=== PATIENT | female | born 1980 | race American Indian/Alaskan Native ===

== ENCOUNTER 2016-12-03 08:09 | Emergency (ER) | payer OTHER, MEDICAID ==
[2016-12-03 08:16] VITALS: BP 122/72
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
== END 2016-12-03 11:58 | disposition home or self-care (01) ==
LOC: ED 08:09
DX: S16.1XXA Strain of muscle, fascia and tendon at neck level, initial encounter (principal); M25.571 Pain in right ankle and joints of right foot; M54.6 Pain in thoracic spine; V49.49XA Driver injured in collision with other motor vehicles in traffic accident, initial encounter; X58.XXXA Exposure to other specified factors, initial encounter; Y93.9 Activity, unspecified; Y92.9 Unspecified place or not applicable; Y99.9 Unspecified external cause status
CPT/HCPCS: 72040; 72070; 99283

== ENCOUNTER 2017-02-15 08:29 | Emergency (ER) | payer MEDICAID, OTHER ==
[2017-02-15 08:40] VITALS: BP 126/76
--- NOTE | 2017-02-15 09:12 | XRay Report ---
RIGHT FINGERS, 3 VIEWS History: Right middle finger pain. Findings: There is a subtle cortical defect at the base of the middle phalanx of the third digit seen on the lateral view only. This could represent a chip fracture or avulsion injury. Please correlate with the image and patient. The remaining right fingers are intact. No joint pathology. Normal soft tissues. Impression: Questionable nondisplaced fracture at the base of the middle phalanx. See above.
[2017-02-15] MEDS ORDERED: NORCO 5/325 PO ONE (12:28)
[2017-02-15] MEDS ORDERED: MOTRIN PO ONE (12:28)
--- NOTE | 2017-02-15 12:44 | Emergency Department Report ---
Entered by TONNY PEREZ, acting as scribe for ABBI HAYNES PA. ED Upper Extremity Inj HPI - General Chief Complaint: Extremity Injury, Upper Stated Complaint: SWOLLEN FINGER Time Seen by Provider: 02/15/17 12:00 Source: patient, family Mode of arrival: Ambulatory Limitations: No Limitations - History of Present Illness Initial Comments: 36 y/o female with no significant PMHx presents to the ED c/o proximal right middle phalanx pain that began 1 week ago. Rates pain an 8/10 in severity, which she describes as aching in quality. Aggravated with movement and alleviated with immobilization. Patient states heavy glass fell on her right middle finger 1 week ago. Reports associated right middle finger swelling, numbness, and tingling, but she denies fever and chills. Took 1/2 tablet of Motrin 800mg yesterday with some relief. Allergic to codeine. Complaint: Injury to:: right, finger (middle) Onset/Timin -: week(s) Other Extremity Injury: Fingers: Right (middle, pain and swelling) Other Injuries: none Handedness: right Place: home Severity scale (0 -10): 8 Improves With: immobilization, medication Worsens With: movement of extremity Context: direct blow, other (heavy glass fell on right middle finger) Associated Symptoms: other (right middle finger swelling and tingling). denies : weakness, numbness, neck pain, suspects foreign body, nausea/vomiting, heard/ felt popping sensat Treatments Prior to Arrival: other (Motrin 800mg yesterday) - Related Data Previous Rx's Medication Instructions Recorded Last Taken Type methOCARBAMOL [Robaxin TAB] 500 mg PO Q6H PRN #15 tablet 12/03/16 Unknown Rx traMADol [Ultram] 50 mg PO Q6HR PRN #12 tablet 12/03/16 Unknown Rx HYDROcodone/APAP 5-325 [Dunlap 1 each PO Q6HR PRN #12 tablet 02/15/17 Unknown Rx 5/325] Ibuprofen [Motrin 600 MG tab] 600 mg PO Q8H PRN #15 tablet 02/15/17 Unknown Rx Allergies Allergy/AdvReac Type Severity Reaction Status Date / Time codeine AdvReac Vomiting Verified 02/15/17 08:40 ED Review of Systems Comment: All other systems reviewed and negative Constitutional: denies: chills, fever Eyes: denies: eye pain, eye discharge, vision change ENT: denies: ear pain, throat pain Respiratory: denies: cough, orthopnea, shortness of breath, SOB with exertion, SOB at rest, stridor, wheezing Cardiovascular: denies: chest pain, palpitations, dyspnea on exertion, orthopnea , edema, syncope, paroxysmal nocturnal dyspnea Endocrine: no symptoms reported Gastrointestinal: denies: abdominal pain, nausea, vomiting, diarrhea Musculoskeletal: joint swelling (right middle finger), myalgia (right middle finger pain). denies: back pain, arthralgia Skin: denies: rash, lesions Neurological: denies: headache, weakness, numbness, paresthesias, confusion, abnormal gait, vertigo ED Past Medical Hx - Past Medical History Previous Medical History?: No Additional medical history: denies - Surgical History Past Surgical History?: Yes Additional Surgical History: X 2. RIGHT ANKLE -SCREWS - Family History Family history: no significant - Social History Smoking Status: Never Smoker Substance Use Type: None Other Social History: Single - Medications Home Medications: Home Medications Medication Instructions Recorded Confirmed Last Taken Type methOCARBAMOL [Robaxin TAB] 500 mg PO Q6H PRN #15 tablet 12/03/16 Unknown Rx traMADol [Ultram] 50 mg PO Q6HR PRN #12 tablet 12/03/16 Unknown Rx HYDROcodone/APAP 5-325 [Dunlap 1 each PO Q6HR PRN #12 tablet 02/15/17 Unknown Rx 5/325] Ibuprofen [Motrin 600 MG tab] 600 mg PO Q8H PRN #15 tablet 02/15/17 Unknown Rx ED Physical Exam - General Limitations: No Limitations General appearance: alert, in no apparent distress - Head Head exam: Present: atraumatic, normocephalic, normal inspection - Eye Eye exam: Present: normal appearance, PERRL, EOMI Pupils: Present: normal accommodation - ENT ENT exam: Present: normal exam, normal orophraynx, mucous membranes moist - Neck Neck exam: Present: normal inspection, full ROM. Absent: tenderness, meningismus, lymphadenopathy - Respiratory Respiratory exam: Present: normal lung sounds bilaterally. Absent: respiratory distress, wheezes, rales, rhonchi, stridor, chest wall tenderness, accessory muscle use, decreased breath sounds - Cardiovascular Cardiovascular Exam: Present: regular rate, normal rhythm, normal heart sounds. Absent: systolic murmur, diastolic murmur - GI/Abdominal GI/Abdominal exam: Present: soft, normal bowel sounds. Absent: distended - Extremities Exam Extremities exam: Present: full ROM (limited and painful ROM to right middle finger), tenderness (proximal right middle phalanx), normal capillary refill, joint swelling (proximal right middle phalanx). Absent: normal inspection, pedal edema, calf tenderness - Expanded Upper Extremity Exam Right General: Absent: normal inspection, laceration, abrasion, nail injury (#), foreign body, amputation, avulsion Shoulder Exam: Present: normal inspection, full ROM, tenderness. Absent: swelling, abrasion, laceration, ecchymosis, deformity, crepidus, dislocation, erythema, tenderness over AC joint Upper Arm exam: Present: normal inspection, full ROM. Absent: tenderness, swelling, abrasion, laceration, ecchymosis, deformity, crepidus, dislocation, erythema Elbow exam: Present: normal inspection, full ROM. Absent: tenderness, swelling , abrasion, laceration, ecchymosis, deformity, crepidus, dislocation, erythema, effusion, pain w/ pronation/supination, tenderness over radial head Forearm Wrist exam: Present: normal inspection, full ROM. Absent: tenderness, swelling, abrasion, laceration, ecchymosis, deformity, crepidus, dislocation, erythema, tenderness over anatomical snuff box, pain with axial thumb loading Hand Wrist exam: Present: full ROM (limited and painful ROM to proximal right middle phalanx), tenderness (proximal right middle phalanx), swelling (proximal right middle phalanx). Absent: abrasion, laceration, ecchymosis, deformity, crepidus, dislocation, erythema, amputation, nail avulsion, subungual hematoma Neuro motor exam: Present: wrist extension intact, thumb opposition intact, thumb IP flexion intact, thumb adduction intact, fingers 2-5 abduction intact Neurosensory exam: Present: 2-point discrimination, radial nerve intact Vascular: Present: normal capillary refill, radial pulse, brachial pulse, ulnar pulse. Absent: vascular compromise, Pallo, pulse deficit radial art, pulse deficit brachial art - Back Exam Back exam: Present: normal inspection, full ROM. Absent: tenderness - Neurological Exam Neurological exam: Present: alert, oriented X3, normal gait, reflexes normal. Absent: motor sensory deficit - Psychiatric Psychiatric exam: Present: normal affect, normal mood - Skin Skin exam: Present: warm, dry, intact. Absent: rash ED Course Vital Signs 02/15/17 08:36 Temperature 97.6 F Pulse Rate 74 Respiratory 18 Rate Blood Pressure 126/76 O2 Sat by Pulse 99 Oximetry - Reevaluation(s) Reevaluation #1: 02/15/17 12:33 Patient given Dunlap 5/325 2 tablets emergency room for pain. - Orthopedic Splinting/Casting Injury #1 Side: right Upper Extremity Injury Location: finger Upper Extremity Immobilizer: aluminum form splint Additional Comments: Patient with nondisplaced fracture of right third finger at the proximal phalanx. Splint placed and kept in place by Zack. She had tolerated procedure well. ED Medical Decision Making - Radiology Data Radiology results: report reviewed Radiology read x-ray of the hand as questionable nondisplaced fracture at the base of right middle finger phalanx - Medical Decision Making ED course: Patient here status post blunt trauma to right middle finger at proximal phalanx. She said this happened a week ago she took Ultram and last yesterday and she says she had minimal relief. Port swollen and pain to right third proximal phalanx. X-ray report revealed the patient with questionable for a nondisplaced fracture to right third proximal phalanx. Patient with swelling and bony tenderness to area. Diagnosis of finger fracture, nondisplaced right third distal phalanx, finger pain, right middle finger right , right middle finger injury. Patient was undescended diagnosis and treatment plan. She was given Dunlap 5/325 2 tablets emergency room for pain. See procedure note for splint placement to finger fracture. Patient discharged home to follow up with Dr. Barajas orthopedic doctor and 3-5 days. Discharged home with prescription for Dunlap and Motrin ED Disposition Clinical Impression: Pain of right middle finger Fracture of proximal phalanx of right middle finger Qualifiers: Encounter type: initial encounter Fracture type: closed Fracture alignment: nondisplaced Qualified Code(s): S62.642A - Nondisplaced fracture of proximal phalanx of right middle finger, initial encounter for closed fracture Injury of right middle finger Qualifiers: Encounter type: initial encounter Qualified Code(s): S69.91XA - Unspecified injury of right wrist, hand and finger(s), initial encounter Disposition: DC-01 TO HOME OR SELFCARE Is pt being admited?: No Does the pt Need Aspirin: No Condition: Stable Instructions: Finger Fracture (ED), Splint Care (ED), Arthralgia (ED) Additional Instructions: follow-up with Dr. mcgarry for the orthopedic doctor for nondisplaced finger fracture. Keep splint on. avoid driving or operating heavy machinery while taking in no cause this medication will make you sleepy Prescriptions: HYDROcodone/APAP 5-325 [Dunlap 5/325] 1 each PO Q6HR PRN #12 tablet PRN Reason: Pain Ibuprofen [Motrin 600 MG tab] 600 mg PO Q8H PRN #15 tablet PRN Reason: Pain Referrals: DION BARAJAS MD [Staff Physician] - 3-5 Days Forms: Work/School Release Form(ED) This documentation as recorded by the ANA adkins JASMINE,accurately reflects the service I personally performed and the decisions made by ,ABBI HAYNES PA.
== END 2017-02-15 12:35 | disposition home or self-care (01) ==
LOC: ED 08:29
DX: S62.642A Nondisplaced fracture of proximal phalanx of right middle finger, initial encounter for closed fracture (principal); X58.XXXA Exposure to other specified factors, initial encounter; Y93.9 Activity, unspecified; Y92.9 Unspecified place or not applicable; Y99.9 Unspecified external cause status

== ENCOUNTER 2017-04-25 09:46 | Emergency (ER) | payer MEDICAID ==
[2017-04-25 10:34] VITALS: BP 139/88
== END 2017-04-25 10:31 | disposition left against medical advice (07) ==
LOC: ED 09:46
DX: M54.2 Cervicalgia (principal); M54.9 Dorsalgia, unspecified; Z53.21 Procedure and treatment not carried out due to patient leaving prior to being seen by health care provider

== ENCOUNTER 2019-01-30 09:02 | Emergency (ER) | payer OTHER, MEDICAID ==
[2019-01-30 09:14] VITALS: BP 152/95
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
== END 2019-01-30 10:35 | disposition left against medical advice (07) ==
LOC: ED 09:02
DX: M54.2 Cervicalgia (principal); M25.511 Pain in right shoulder; Z88.5 Allergy status to narcotic agent

== ENCOUNTER 2019-01-30 11:28 | Emergency (ER) | payer OTHER, MEDICAID ==
[2019-01-30 11:44] VITALS: BP 156/89
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
== END 2019-01-30 14:59 | disposition home or self-care (01) ==
LOC: ED 11:28
DX: S43.401A Unspecified sprain of right shoulder joint, initial encounter (principal); M54.2 Cervicalgia; Z88.5 Allergy status to narcotic agent; Z79.1 Long term (current) use of non-steroidal anti-inflammatories (NSAID); V89.2XXA Person injured in unspecified motor-vehicle accident, traffic, initial encounter; Y93.89 Activity, other specified; Y92.488 Other paved roadways as the place of occurrence of the external cause; Y99.8 Other external cause status
CPT/HCPCS: 99281

== ENCOUNTER 2020-09-20 12:54 | Emergency (ER) | payer SELFPAY ==
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
[2020-09-20 14:10] VITALS: BP 165/85
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
--- NOTE | 2020-09-20 14:56 | XRay Report ---
Thoracic spine 3 views INDICATION: Pain FINDINGS: Mild curvature the spine. Pedicles appear normal throughout. No compression fractures seen. Signer Name: Kelby Ford MD Signed: 09/20/2020 2:52 PM Workstation Name: [email or web address]
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
== END 2020-09-20 15:20 | disposition home or self-care (01) ==
LOC: ED 12:54
DX: S39.012A Strain of muscle, fascia and tendon of lower back, initial encounter (principal); S29.012A Strain of muscle and tendon of back wall of thorax, initial encounter; S80.02XA Contusion of left knee, initial encounter; Z79.899 Other long term (current) drug therapy; V49.59XA Passenger injured in collision with other motor vehicles in traffic accident, initial encounter; Y93.89 Activity, other specified; Y92.488 Other paved roadways as the place of occurrence of the external cause; Y99.8 Other external cause status
CPT/HCPCS: 72072; 72100; 99283

== ENCOUNTER 2020-11-12 13:48 | Emergency (ER) | payer OTHER, MEDICAID ==
[2020-11-12 17:06] VITALS: BP 186/93
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
== END 2020-11-12 21:07 | disposition home or self-care (01) ==
LOC: ED 13:48
DX: S16.1XXA Strain of muscle, fascia and tendon at neck level, initial encounter (principal); S39.012A Strain of muscle, fascia and tendon of lower back, initial encounter; S09.90XA Unspecified injury of head, initial encounter; Z88.6 Allergy status to analgesic agent; Z98.890 Other specified postprocedural states; Z79.899 Other long term (current) drug therapy; V49.49XA Driver injured in collision with other motor vehicles in traffic accident, initial encounter; Y92.410 Unspecified street and highway as the place of occurrence of the external cause; Y93.89 Activity, other specified; Y99.8 Other external cause status
CPT/HCPCS: 70450; 72125

== ENCOUNTER 2020-11-16 12:57 | Emergency (ER) | payer MEDICAID, OTHER ==
[2020-11-16 13:08] VITALS: BP 147/84
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
== END 2020-11-16 15:30 | disposition left against medical advice (07) ==
LOC: ED 12:57
DX: M25.552 Pain in left hip (principal); Z79.899 Other long term (current) drug therapy; V49.69XA Unspecified car occupant injured in collision with other motor vehicles in traffic accident, initial encounter; Y93.89 Activity, other specified; Y92.488 Other paved roadways as the place of occurrence of the external cause; Y99.8 Other external cause status
CPT/HCPCS: 99282

== ENCOUNTER 2020-11-24 15:34 | Emergency (ER) | payer MEDICAID, OTHER | END 2020-11-24 17:30 | disposition home or self-care (01) | LOC: ED 15:34 | CPT/HCPCS: 99283 ==

== ENCOUNTER 2021-09-26 09:46 | Emergency (ER) | payer SELFPAY ==
[2021-09-26 10:05] VITALS: BP 166/79
[2021-09-26] MEDS ORDERED: ACETAMINOPHEN 325 MG TAB PO ONE (11:01)
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
== END 2021-09-26 12:28 | disposition home or self-care (01) ==
LOC: ED 09:46
DX: S29.012A Strain of muscle and tendon of back wall of thorax, initial encounter (principal); S16.1XXA Strain of muscle, fascia and tendon at neck level, initial encounter; S00.03XA Contusion of scalp, initial encounter; M62.830 Muscle spasm of back; Z88.5 Allergy status to narcotic agent; X58.XXXA Exposure to other specified factors, initial encounter; Y93.89 Activity, other specified; Y92.89 Other specified places as the place of occurrence of the external cause; Y99.8 Other external cause status
CPT/HCPCS: 70450; 72070; 72100; 72125; 99284